=== PATIENT | female | born 1985 | race Caucasian/White ===

== ENCOUNTER 2018-09-16 06:16 | Inpatient (IN) | payer OTHER ==
[2018-09-16] MEDS ORDERED: RINGERS SOLUTION,LACTATED 1,000 ML IV PRN (06:27)
[2018-09-16 07:12] LABS: ABSOLUTE EOSINOPHILS # (AUTO) 0.1 10^3/uL (0.0-0.6); ABSOLUTE LYMPHOCYTES (AUTO) 2.2 10^3/uL (0.5-4.7); ABSOLUTE MONOCYTES (AUTO) 0.6 10^3/uL (0.1-1.4); ABSOLUTE NEUT (AUTO) 7.8 10^3/uL (1.7-8.2); BASOPHILS % (AUTO) 0.5 % (0-2); EOSINOPHILS % (AUTO) 1.2 % (0-6); HEMATOCRIT 34.6 % (36.0-47.0); HEMOGLOBIN 12.3 g/dL (12.0-15.5); LYMPHOCYTES % (AUTO) 20.7 % (13-45); MEAN CORPUSCULAR HEMOGLOBIN 31.9 pg (27.0-33.4); MEAN CORPUSCULAR HGB CONC 35.6 g/dL (32.0-36.0); MEAN CORPUSCULAR VOLUME 90 fl (80-97); MONOCYTES % (AUTO) 5.4 % (3-13); PLATELET COUNT 239 10^3/uL (150-450); RED BLOOD COUNT 3.87 10^6/uL (3.72-5.28); RED CELL DISTRIBUTION WIDTH 13.7 % (11.5-14.0); SEGMENTED NEUTROPHILS % (AUTO) 72.2 % (42-78); TOTAL CELLS COUNTED % (AUTO) 100 %; WHITE BLOOD COUNT 10.9 10^3/uL (4.0-10.5)
[2018-09-16] MEDS ORDERED: OXYTOCIN/NORMAL SALINE 20 UNIT/1,000 ML RTUINJ IV PRN ×2 (07:41→23:51)
[2018-09-16 07:53] LABS: URINE AMPHETAMINES SCREEN NEGATIVE; URINE BARBITURATES SCREEN NEGATIVE; URINE BENZODIAZEPINES SCREEN NEGATIVE; URINE COCAINE SCREEN NEGATIVE; URINE MARIJUANA (THC) SCREEN NEGATIVE; URINE METHADONE SCREEN NEGATIVE; URINE PHENCYCLIDINE SCREEN NEGATIVE
[2018-09-16] MEDS ORDERED: MISOPROSTOL 0.2 MG TABLET ONE (07:57)
[2018-09-16] MEDS ORDERED: OXYTOCIN 10 UNIT/ML VIAL ONE (07:57)
[2018-09-16] MEDS ORDERED: OXYTOCIN/NORMAL SALINE 20 UNIT/1,000 ML RTUINJ ONE ×2 (07:57→19:51)
[2018-09-16] MEDS ORDERED: LIDOCAINE 1% INJ-PF (10 MG/ML) 30 ML SDV ONE (07:57)
--- NOTE | 2018-09-16 08:34 | Admission Physical ---
Datetime Report Generated by CPN: 09/16/2018 08:34 CURRENT ADMISSION Indication for Induction: Maternal Diabetes Indication for Induction- Other: GDM-DC Admit Impression : Term, Intrauterine ; Intact Membranes; Induction of Labor Admit Plan: Admit to Unit; Initiate Labor Induction Protocol Admit Plan- Other: Routine Pitocn ALLERGIES Medication Allergies: No Medication Allergies: No Known Allergies (09/16/2018) Latex: No Latex Allergies OBSTETRICAL HISTORY EDC: 09/09/2018 00:00 : 1 Para: 0 Term: 0 : 0 SAB: 0 IAB: 0 Livin Gestational Diabetes: Yes Rh Sensitization: No Incompetent Cervix: No MARIE: No Infertility: No ART Treatment: No Uterine Anomaly: No IUGR: No Hx Previous C/S: No Macrosomia: Unknown Hx Loss/Stillborn: No PIH: No Hx : No Placenta Previa/Abruption: No Depression/PP Depression: No PTL/PROM: No Post Hemorrhage: No Current Procedures: Ultrasound; NST Obstetrical History Comments: g1-current , GDM SEE RECORDS Alcohol: No Marijuana : No Cocaine: No Other Illicit Drugs: No Cigarettes: Never Smoker. [id number] MEDICAL HISTORY Diabetes: Yes Diabetes Type: Gestational Diabetes Blood Transfusion: No Pulmonary Disease (Asthma, TB): No Breast Disease: No Hypertension: No Drier Feeder Surgery: No Heart Disease: No Hosp/Surgery: Yes Autoimmune Disorder: No Anesthetic Complications: No Kidney Disease: No Abnormal Pap Smear: No Neuro/Epilepsy: No Psychiatric Disorders: No Other Medical Diseases: No Hepatitis/Liver Disease: No Significant Family History: No Varicosities/Phlebitis: No Trauma/Violence : No Thyroid Dysfunction: No Medical History Comments: gallbladder removed , e coli uti INFECTIOUS HISTORY Gonorrhea: No Genital Herpes: No Chlamydia: No Tuberculosis: No Syphilis: No Hepatitis: No HIV/AIDS Exposure: No Rash or Viral Illness: No HPV: No PHYSICAL EXAM General: Normal HEENT: Normal Neurologic: Normal Thyroid: Normal Heart: Normal Lungs: Normal Breast: Normal Back: Normal Abdomen: Normal Genitourinary Exam: Normal Extremities: Normal DTRs: Normal Pelvic Type: Adequate Vital Signs: Reviewed FETUS A Monitoring: External US Decelerations: None Admit Comment: Pt admitted this morning for IOL. 41 wks w/ GDM-DC. GBS negative. VE in the office , vtx. Pt for routine Pitocin to start this morning. Pt doing well and has no complaints. Plans an epidural when in active labor. Attending MD is Dr Reagan. PLANS FOR LABOR AND DELIVERY Labor and Delivery: None Pain Management: Epidural Feeding Preference: Breast Benefit of Breast Feed Discussed: Yes Circumcision: Yes INFORMED CONSENT Assignment: Bela Tez, MD Signature: with User ID: Alexandrea : with User ID: [email or web address]
[2018-09-16] MEDS ORDERED: FENTANYL/BUPIVACAINE/NS/PF 300 MCG/150 ML RTUINJ EPI ONE (12:34)
[2018-09-16] MEDS ORDERED: BUPIVACAINE HCL 0.25 % INJ/PF (2.5 MG/1 ML) 30 ML VIAL ONE (12:34)
[2018-09-16] MEDS ORDERED: EPHEDRINE SULFATE INJ 50 MG/1 ML AMPULE ONE (12:34)
[2018-09-16] MEDS ORDERED: FAMOTIDINE INJ/PF 20 MG/2 ML SDV IV ONE ×2 (19:05→19:45)
[2018-09-16] MEDS ORDERED: ACETAMINOPHEN 325 MG TABLET ONE (23:08)
[2018-09-16] MEDS ORDERED: AMPICILLIN SOD/SULBACTAM 3 GM VIAL IV SCH (23:45)
[2018-09-16] MEDS ORDERED: AMPICILLIN SOD/SULBACTAM 3 GM VIAL ONE (23:49)
[2018-09-16] MEDS ORDERED: PROMETHAZINE HCL 25 MG TABLET PO PRN (23:51)
[2018-09-16] MEDS ORDERED: MEASLES,MUMPS&RUBELLA VACC/PF 0.5 ML VIAL SUBCUT PRN (23:51)
[2018-09-16] MEDS ORDERED: NA PHOS,M-B/NA PHOS,DI-BA (ADULT) 133 ML ENEMA PR PRN (23:51)
[2018-09-16] MEDS ORDERED: ACETAMINOPHEN 650 MG SUPP.RECT PR PRN (23:51)
[2018-09-16] MEDS ORDERED: DIPHENHYDRAMINE HCL 25 MG CAPSULE PO PRN (23:51)
[2018-09-16] MEDS ORDERED: DIBUCAINE 1% OINTMENT 56 GM TP PRN (23:51)
[2018-09-16] MEDS ORDERED: PROMETHAZINE HCL 25 MG SUPP.RECT PR PRN (23:51)
[2018-09-16] MEDS ORDERED: PROMETHAZINE HCL INJ 25 MG/1 ML VIAL IV PRN (23:51)
[2018-09-16] MEDS ORDERED: ACETAMINOPHEN WITH CODEINE #3 TABLET PO PRN ×2 (23:51)
[2018-09-16] MEDS ORDERED: PSEUDOEPHEDRINE HCL 30 MG TABLET PO PRN (23:51)
[2018-09-16] MEDS ORDERED: MAGNESIUM HYDROXIDE SUSP 30 ML UDCUP PO PRN (23:51)
[2018-09-16] MEDS ORDERED: ZOLPIDEM TARTRATE 5 MG TABLET PO PRN (23:51)
[2018-09-16] MEDS ORDERED: DIPH/PERTUSS(ACELL)/TETANUS VAC/PF 0.5 ML SYR (>=10YO) IM PRN (23:51)
[2018-09-16] MEDS ORDERED: BENZOCAINE/MENTHOL AEROSOL SPRAY 56 ML TOP PRN (23:51)
[2018-09-16] MEDS ORDERED: GLYCERIN/WITCH HAZEL LEAF 1 EACH MED..WIPE TP PRN (23:51)
--- NOTE | 2018-09-17 00:20 | Warning Signs in Babies ---
VOD Warning Signs Datetime Report Generated by [facility]: 09/17/2018 00:20 VOD#608 -Warning Signs in Babies: Viewed with Parent(s)/Family (09/16/2018 05:18:Naveen Granda RN)
--- NOTE | 2018-09-17 00:28 | Delivery Summary ---
Del Sum A-C Datetime Report Generated by CPN: 09/17/2018 00:28 DELIVERY PERSONNEL DELIVERY PERSONNEL: [id number] Delivery Doctor:: Bela Reagan MD Labor and Delivery Nurse:: Naveen Granda RNstation installer and repairer Nurse:: Janey SuBREANA Outreach Liaison/LICENSED JOURNEYMAN ELECTRICIAN: Rochelle Asaf MATERNAL INFORMATION Delivery Anesthesia: Epidural Medications After Delivery: Pitocin Bolus-Please Comment; Pitocin Drip 20 Units/1000ml NSS Meds After Delivery Comment: Pitocin 20 units in 1000 mL NS bolusing Estimated Blood Loss (ml): 500 Delivery QBL: 500 Maternal Complications: None LABOR SUMMARY EDC: 09/09/2018 00:00 No. Babies in Womb: 1 Attempted: No Labor Anesthesia: Epidural LABOR INFORMATION Reason for Induction: Maternal Diabetes; Other Reason for Induction- Other: GDM Onset of Labor: 09/16/2018 13:00 Complete Dilatation: 09/16/2018 20:10 Oxytocin: Induction Group B Beta Strep: negative Antibiotics # of Doses: 0 Steroids Given: None Reason Steroids Not Administered: Not Applicable MEMBRANES Membranes Rupture Method: Artificial Rupture of Membranes: 09/16/2018 14:06 Length of Rupture (hr): 8.28 Amniotic Fluid Color: Clear (Annotations: bloody tinge) Amniotic Fluid Amount: Large Amniotic Fluid Odor: None STAGES OF LABOR Stage 1 hr: 7 Stage 1 min: 10 Stage 2 hr: 2 Stage 2 min: 13 Stage 3 hr: 0 Stage 3 min: 4 Total Time in Labor hr: 9 Total Time in Labor min: 27 VAGINAL DELIVERY Episiotomy: None Laceration #1: Perineal Laceration Extension #1: Third Degree, IIIa (Less than 50 percent ext anal sphincter thickness torn) Laceration #2: Vaginal Laceration Extension #2: Second Degree Other Laceration: labial 2nd degree Laceration Repair: Yes Laceration Repair Note: chromic suture in running, locked and some interrupted fashions. Sponge Count Correct: Yes Sharps Count Correct: Yes CSECTION DELIVERY Primary Indication: N/A Secondary Indication: N/A CSection Incidence: N/A Labor: N/A Elective: N/A CSection Incision: N/A BABY A INFORMATION Infant Delivery Date/Time: 09/16/2018 22:23 Method of Delivery: Vaginal Born in Route : No : N/A Forceps: N/A Vacuum Extraction: Successful Shoulder Dystocia : No PRESENTATION/POSITION BABY A Presentation: Cephalic Cephalic Presentation: Vertex Vertex Position: Right Occipital Anterior Breech Presentation: N/A PLACENTA INFORMATION BABY A Placenta Delivery Time : 09/16/2018 22:27 Placenta Method of Delivery: Spontaneous Placenta Status: Delivered SCORES BABY A Heart Rate 1 min: >100 bpm Resp Effort 1 min: Good Cry Reflex Irritability 1 min: Cough or Sneeze or Pulls Away Muscle Tone 1 min: Active Motion Color 1 min: Blue/Pale Resuscitation Effort 1 min: Tactile Stimulation SCORE 1 MIN: 8 Heart Rate 5 min: >100 bpm Resp Effort 5 min: Good Cry Reflex Irritability 5 min: Cough or Sneeze or Pulls Away Muscle Tone 5 min: Active Motion Color 5 min: Body [place], Extremities Blue SCORE 5 MIN: 9 INFANT INFORMATION BABY A Gestational Age at Delivery: 41.0 Gestational Status: Late Term- 41- 41.6 Weeks Outcome : Liveborn Condition : Stable Infant Sex: Male IDENTIFICATION BABY A Verification Date/Time: 09/16/2018 23:00 ID Band Number: [id number] Mother's Name Verified: Yes Infant RN Verifying Infant: K Jesus Alberto RN Additional Verifying Personnel: L Parlor WEIGHT/LENGTH BABY A Birthweight (gm): 4298 Infant Weight (lb): 9 Infant Weight (oz): 8 Infant Length (in): 21.00 Infant Length (cm): 53.34 CORD INFORMATION BABY A No. Cord Vessels: 3 Nuchal Cord : N/A Cord Blood Taken: Yes-For Storage (Mom's Blood type +) Infant Suction: Mouth ASSESSMENT BABY A Complications: None Physical Findings at Delivery: Caput Su[place]edaneum Infant Respirations: Appears Normal Skin to Skin: Yes Audio Visual Manager/ALS Called : No Care By: Primo Granda RN Transferred To: Remains with Mother BABY B INFORMATION : N/A SIGNATURES Signature: with User ID: [email or web address]
[2018-09-17] MEDS: IBUPROFEN 800 MG TABLET PO SCH ×3 (06:55→21:17)
[2018-09-17 06:57] LABS: HEMATOCRIT 29.6 % (36.0-47.0); HEMOGLOBIN 10.4 g/dL (12.0-15.5); MEAN CORPUSCULAR HEMOGLOBIN 31.8 pg (27.0-33.4); MEAN CORPUSCULAR HGB CONC 35.2 g/dL (32.0-36.0); MEAN CORPUSCULAR VOLUME 91 fl (80-97); PLATELET COUNT 202 10^3/uL (150-450); RED BLOOD COUNT 3.27 10^6/uL (3.72-5.28); RED CELL DISTRIBUTION WIDTH 13.6 % (11.5-14.0); WHITE BLOOD COUNT 18.9 10^3/uL (4.0-10.5)
[2018-09-17] MEDS: FAMOTIDINE 20 MG TABLET PO SCH ×3 (07:33→22:22)
[2018-09-17] MEDS: FERROUS SULFATE 325 MG TABLET PO SCH ×2 (09:42→17:35)
[2018-09-17] MEDS: DOCUSATE SODIUM 100 MG CAPSULE PO SCH ×2 (09:42→17:35)
[2018-09-17] MEDS: PRENATAL VITAMIN W DHA CAPSULE PO SCH (09:42)
[2018-09-17] MEDS: SENNOSIDES/DOCUSATE 8.6-50 MG 1 EACH TABLET PO SCH (09:42)
--- NOTE | 2018-09-17 12:00 | PDOC PROGRESS REPORT ---
Subjective-OB Progress Note for:: 09/17/18 Subjective: OOB to shower, perineum iproving but still discomfort, voiding, lochia scant Physical Exam (OB) Vital Signs: Temp Pulse Resp BP Pulse Ox 97.9 F 73 16 104/65 99 09/17/18 07:50 09/17/18 07:50 09/17/18 02:57 09/17/18 07:50 09/17/18 07:50 Intake & Output 09/16/18 09/17/18 09/18/18 06:59 06:59 06:59 Output Total 900 Balance -900 Weight 90.3 kg - PIH/Pre-Eclampsia Headache: Absent Epigastric Pain: No Visual Changes: No - Lochia Lochia Amount: Scant < 10 ml Lochia Color: Rubra/Red - Abdomen Description: Tender, Soft Hernia Present: No Fundal Description: Firm, Midline Fundal Height: u/u - u/2 Objective-Diagnostic Laboratory: 09/17/18 06:32 09/17/18 06:32 WBC 18.9 H RBC 3.27 L Hgb 10.4 L Hct 29.6 L MCV 91 MCH 31.8 MCHC 35.2 RDW 13.6 Plt Count 202 Assessment and Plan(PN) - Assessment and Plan (1) Perineal laceration during delivery Qualifiers: Perineal laceration degree: second degree Qualified Code(s): O70.1 - Second degree perineal laceration during delivery Is this a current diagnosis for this admission?: Yes (2) Vaginal laceration Qualifiers: Perineal laceration degree: second degree Is this a current diagnosis for this admission?: Yes (4) Vaginal delivery Is this a current diagnosis for this admission?: Yes - Time Spent with Patient Time with patient: Less than 15 minutes Medications reviewed and adjusted accordingly: Yes - Disposition Anticipated Discharge: Home Within: within 24 hours
[2018-09-18] MEDS: IBUPROFEN 800 MG TABLET PO SCH ×2 (05:26→13:51)
[2018-09-18 09:30] VITALS: BP 100/63
[2018-09-18] MEDS: FAMOTIDINE 20 MG TABLET PO SCH (09:36)
[2018-09-18] MEDS: PRENATAL VITAMIN W DHA CAPSULE PO SCH (09:37)
[2018-09-18] MEDS: FERROUS SULFATE 325 MG TABLET PO SCH (09:37)
[2018-09-18] MEDS: SENNOSIDES/DOCUSATE 8.6-50 MG 1 EACH TABLET PO SCH (09:37)
[2018-09-18] MEDS: DOCUSATE SODIUM 100 MG CAPSULE PO SCH (09:37)
--- NOTE | 2018-09-18 10:15 | PDOC DISCHARGE SUMMARY ---
Final Diagnosis Discharge Date: 09/18/18 - Final Diagnosis (1) Third degree perineal laceration during delivery, IIIa Is this a current diagnosis for this admission?: Yes (2) Vaginal delivery Is this a current diagnosis for this admission?: Yes Discharge Data - Discharge Medication Home Medications: Calcium Carbonate [Tums] 1 tab PO PRN PRN 09/16/18 Prenat 115/Iron Fum/Folic/Dss [ 19 Tablet] 1 each PO DAILY 09/16/18 Reason(s) for Admission: Induction of Labor, Gestional Diabetes Procedures: NST Intrapartum Procedure(s): Spontaneous Vaginal Delivery Complication(s): Laceration-Perineal Laceration-Degree: 3rd - Diagnosis Test Laboratory: Temp Pulse Resp BP Pulse Ox 97.4 F 80 20 100/63 100 09/18/18 08:05 09/18/18 08:05 09/18/18 08:05 09/18/18 08:05 09/18/18 08:05 09/16/18 09/16/18 09/17/18 06:30 06:49 06:32 RBC 3.87 3.27 L Hgb 12.3 10.4 L Hct 34.6 L 29.6 L Urine Opiates Screen NEGATIVE - Discharge information/Instructions Discharge Activity: Balance Activity w/Rest, No Lifting Over 10 Pounds, No Lifting/Push/Pulling, Pelvic Rest Discharge Diet: Regular Disposition: HOME, SELF-CARE Follow up with: [facility] in: 4, Weeks
== END 2018-09-18 16:19 | disposition home or self-care (01) | DRG 768 ==
LOC: LR 06:16 → 2S 09-17 02:29
PROVIDERS: ADMIT Obstetrics & Gynecology Gynecology; ATTEND Obstetrics & Gynecology
PROC: 10E0XZZ Delivery of Products of Conception, External Approach (ICD-10-PCS; principal; 2018-09-16)
PROC: 0DQR0ZZ Repair Anal Sphincter, Open Approach (ICD-10-PCS; 2018-09-16)
DX: O24.429 Gestational diabetes mellitus in childbirth, unspecified control (principal); O70.21 Third degree perineal laceration during delivery, IIIa; Z37.0 Single live birth; Z3A.41 41 weeks gestation of pregnancy
CPT/HCPCS: 36415; 80307; 85025; 85027; 86592; 86850; 86900; 86901; J0295; J2590; J3010; J3490; S0028